=== PATIENT | female | born 1990 | race Hispanic/Latino ===

== ENCOUNTER → 2023-09-10 09:30 | Outpatient (REF) | payer OTHER, SELFPAY ==
[2023-09-10 10:12] LABS: Hematocrit 38.1 % (37.0-47.0); Hemoglobin 12.5 g/dL (12.0-16.0); Mean Corp Hgb Conc. 32.8 g/dL (33.0-37.0); Mean Corpuscular Hgb 27.9 pg (27.0-31.0); Mean Platelet Volume 9.5 fL (7.4-10.4); Platelet Count 278 10^3/uL (130-400); Red Blood Cell Count 4.48 10^6/uL (4.20-5.40); Red Cell Dist. Width 12.4 % (11.5-14.5); White Blood Cell Count 5.6 10^3/uL (4.8-10.8)
[2023-09-10 10:42] LABS: ALT (SGPT) 54 U/L (0-35); AST (SGOT) 29 U/L (14-36); Albumin 4.8 g/dl (3.5-5.0); Alkaline Phosphatase 87 U/L (38-126); Blood Urea Nitrogen 11 mg/dl (7-17); Calcium 9.5 mg/dl (8.4-10.2); Carbon Dioxide 24 mmol/L (22-30); Chloride 104 mmol/L (98-107); GGTP 40 U/L (12-43); Glucose 94 mg/dl (70-99); Potassium 4.3 mmol/L (3.5-5.1); Sodium 136 mmol/L (135-145); Total Bilirubin 0.5 mg/dl (0.2-1.3); Total Protein 7.9 g/dl (6.3-8.2); eGFR > 60.00
[2023-09-10 12:05] LABS: TSH Reflex To Free T4 3.32 uIU/ml (0.47-4.68)
[2023-09-11 10:31] LABS: H. pylori Breath Test Negative (Negative)
[2023-09-12 00:44] LABS: Endomysial IgA Antibody Titer <1:10 (<1:10)
[2023-09-13 04:10] LABS: IgA 124 mg/dl (70-400)
[2023-09-15 15:54] LABS: tTG IgA Antibody 5.6 EU/ml (0-19); tTG IgG Antibody 6.6 EU/ml (0-19)
== END ==
LOC: CLINIC 09:30
PROVIDERS: ATTENDING PHYSICIAN Nurse Practitioner Adult Health
DX: K29.50 Unspecified chronic gastritis without bleeding (principal); K76.0 Fatty (change of) liver, not elsewhere classified
CPT/HCPCS: 36415; 80053; 82784; 82977; 83013; 83516; 84443; 85027; 86231

== ENCOUNTER → 2023-11-10 10:55 | Outpatient (REF) | payer OTHER, SELFPAY ==
[2023-11-10 12:43] LABS: ALT (SGPT) 33 U/L (0-35); AST (SGOT) 24 U/L (14-36); Albumin 4.6 g/dl (3.5-5.0); Alkaline Phosphatase 87 U/L (38-126); Direct Bilirubin 0.1 mg/dl (0.0-0.4); Total Bilirubin 0.4 mg/dl (0.2-1.3); Total Protein 7.5 g/dl (6.3-8.2)
== END ==
LOC: REG 10:55
PROVIDERS: ATTENDING PHYSICIAN Nurse Practitioner Adult Health
DX: K76.0 Fatty (change of) liver, not elsewhere classified (principal)
CPT/HCPCS: 36415; 80076

== ENCOUNTER → 2024-05-04 06:37 | Day surgery (SDC) | payer OTHER, SELFPAY | LOC: GI 06:37 | PROVIDERS: ATTENDING PHYSICIAN Internal Medicine Gastroenterology | DX: K44.9 Diaphragmatic hernia without obstruction or gangrene (principal); K31.7 Polyp of stomach and duodenum; R10.13 Epigastric pain; R12 Heartburn | CPT/HCPCS: 43239; 88305; 88342 ==

== ENCOUNTER → 2024-06-30 12:12 | Outpatient (REF) | payer OTHER, SELFPAY | LOC: CPAP 12:12 | PROVIDERS: ATTENDING PHYSICIAN Nurse Practitioner Adult Health | DX: Z12.4 Encounter for screening for malignant neoplasm of cervix (principal) | CPT/HCPCS: 87624 ==

== ENCOUNTER 2024-09-08 09:38 | Emergency (ER) | payer SELFPAY ==
[2024-09-08 09:38] VITALS: BP 135/94
--- NOTE | 2024-09-08 10:00 | ED.GENMED ---
History of Present Illness
General
Chief Complaint: Ear Problem
Source: patient
Exam Limitations: none
Time Seen by Provider: 09/08/24 09:42
Nursing documentation reviewed up to this point in time: agreed with
History of Present Illness
History of Present Illness:
34-year-old female with no reported chronic medical issues presents to the ER for evaluation of congestion and earache. Patient reports symptoms have been ongoing for about 3 months. She reports nasal congestion and rhinorrhea. She reports aching
in both ears. She reports some sinus pressure/headache. She has tried multiple [id number] medications including decongestions, NSAIDs, Tylenol none of which seems to be helping. She was having trouble getting an appointment in the free
clinic and so she decided to come to the ER for treatment. She denies fevers or chills. Denies neck pain or stiffness. She denies any cough or respiratory issues, GI issues or any other complaints.
Past History
Past History
ED Past Medical History: None
ED Past Surgical History: None
Social History
Personal: Partner
Living: with family
Family History
Family History: Unable to obtain (non-contributory)
Review of Systems
Review of Systems
All Other Systems: ROS reviewed and negative except as documented in HPI and ROS
Constitutional: Denies fever or chills
EENT: Reports runny nose and other (Congestion, earache, sinus pressure)
Respiratory: Denies cough or trouble breathing
ABD/GI: Denies vomiting or diarrhea
Neurological: Reports headache
Phy Exam
Physical Exam
Physical Exam:
General: Awake, alert, oriented x3; no acute distress
Head: Normocephalic, atraumatic
Eyes: Conjunctiva normal, EOMI
Ears: No tenderness over the mastoid processes, no erythema in the mastoid processes; external ears normal, canals clear, TMs clear bilaterally
Nose: Patient does have some mild erythema of the nasal turbinates bilaterally
Throat: Airway intact, handling secretions
Neck: Trachea midline, supple without meningismus
Lungs: Clear to auscultation bilaterally, no wheezing, rales, rhonchi
Heart: Regular rate and rhythm, no murmurs, gallops, or rubs
Neuro: No gross deficits
Skin: no rash
Extremities: Warm and well-perfused
Scores
Heart Failure Risk
Heart Failure Risk Score: Not Applicable
Heart Score for Chest Pain Patients
STEMI patient?: Not applicable
Withdrawal Assessment of Alcohol
Withdrawal Assessment Completed?: Not applicable
Course
Vital Signs
Initial and Last Documented VS:
Initial Vital Signs
Temp Pulse Resp BP Pulse Ox
36.7 C 80 16 135/94 100
09/08/24 09:38 09/08/24 09:38 09/08/24 09:38 09/08/24 09:38 09/08/24 09:38
Last Documented Vital Signs
Temp Pulse Resp BP Pulse Ox
36.7 C 80 16 135/94 100
09/08/24 09:38 09/08/24 09:38 09/08/24 09:38 09/08/24 09:38 09/08/24 09:38
MDM/Problems Addressed
Differential Diagnosis Includes:
Sinusitis (allergic, viral, bacterial), TMJ, tension headache
MDM/Problems Addressed:
34-year-old female presents for evaluation of congestion, sinus pressure and ear aches for the past 3 months. Refractory to [id number] medications. Vitals and exam as above. Suspect likely sinusitis. Given prolonged duration and failure of
outpatient management with conservative measures we will trial course of antibiotics. Advised to once again trial fluticasone alongside antibiotic therapy. Follow-up in free clinic. Stable for discharge.
*Pulse Oximetry
Patient hypoxic: no
*Critical Care Note
Total Time (30-74mins, 75-104mins- exclusive of procedures): Not Applicable
Data Reviewed
Source: patient
Patient Management
Social determinants of health affecting care: Financial situation and Poor outpatient follow-up
ED Attending Note
-
Portions of this chart may have been created with voice recognition software.� Occasional wrong word or��sound alike� substitutions may have occurred due to the inherent limitations of voice recognition software.
Discharge Plan
Departure
Patient Disposition: Home (Routine Discharge)
Date of Disposition: 09/08/24
Time of Disposition: 10:00
Patient with high blood pressure during this ER visit?: No
Discharge Problem:
Earache, Sinusitis
Instructions: Sinusitis in adults
Prescriptions:
New
fluticasone propionate [Aller-Robbie] 50 mcg/actuation spray,suspension
1 spray intranasal DAILY 14 Days Qty: 16 0RF
cefdinir 300 mg capsule
300 mg PO BID Qty: 20 0RF
Referrals:
[facility] - Next open appointment
Activity Restrictions/Additional Instructions:
Thank you for visiting the Emergency Department at [facility].
1. Please schedule a follow up appointment as directed. Call first thing tomorrow morning to make an appointment.
2. If indicated, please take your medications as instructed and indicated on discharge paperwork.
3. If any of your symptoms do not improve, or persist, or become more severe within 6-12 hours, please return to the emergency department for further care.
4. Please return to the emergency department if you develop a headache, neck pain/stiffness, fever greater than 100.4F, chest pain, shortness of breath, persistent nausea, vomiting, slurred speech, difficulty walking, numbness/tingling, weakness,
signs of infection or any other symptoms that are worrisome to you.
Please call [phone] if you have any questions.
Interventions
Interventions:
*Risk Screen - Suicide Last Done: 09/08/24 09:38
*General Assessment Last Done: 09/08/24 09:38
*Neglect/Abuse Screening Last Done: 09/08/24 09:38
*ED COVID-19 Vaccine History Last Done: 09/08/24 09:38
Discharge Date and Time
Print Language: HONG KONGER
== END 2024-09-08 10:08 | disposition home or self-care (01) ==
LOC: EMR 09:38
PROVIDERS: EMERGENCY PHYSICIAN Emergency Medicine; FAMILY PHYSICIAN Nurse Practitioner Adult Health
DX: J32.9 Chronic sinusitis, unspecified (principal); H92.03 Otalgia, bilateral
CPT/HCPCS: 99283

== ENCOUNTER 2024-09-30 03:41 | Inpatient (IN) | payer OTHER, SELFPAY ==
[2024-09-29 20:03] VITALS: BP 124/93
[2024-09-29 20:16] LABS: Urine Albumin 3+ (Neg - Trace); Urine Bilirubin Negative (Negative); Urine Character Cloudy (Clear); Urine Color Yellow; Urine Glucose Negative (Negative); Urine Ketone Negative (Negative); Urine Leukocyte 3+ (Negative); Urine Nitrite Positive (Negative); Urine Occult Blood 4+ (Negative); Urine Urobilinogen 1+ (Neg - 1+)
[2024-09-29 20:26] LABS: Urine Squamous Cell None seen /LPF (Few)
[2024-09-29 20:27] LABS: Urine Red Blood Cell >100 /HPF (0-2)
[2024-09-29 21:10] VITALS: BMI 28.5
--- NOTE | 2024-09-29 23:15 | ED.GENMED ---
History of Present Illness
General
Chief Complaint: Urinary Symptoms
Time Seen by Provider: 09/29/24 23:14
History of Present Illness
History of Present Illness:
TIME OF INITIAL ENCOUNTER: 11:16 PM
HPI: Patient presents with dysuria for the last week or so. She will recently's been having gross hematuria. The pain is primarily on the right side of the abdomen. The pain is also the right flank region. She denies fevers. Language Line was
used to assist with translation
EXAM:
GENERAL: Appears uncomfortable
HEENT: Moist oral mucosa
CARDIOVASCULAR: No murmurs, normal heart rate, regular rhythm, No chest wall tenderness
PULMONARY: No respiratory distress, breath sounds are clear and equal
ABDOMEN: Soft with no peritoneal signs, mild right CVA tenderness, mild right normal tenderness
NEUROLOGIC: Excellent strength all extremities, no coordination deficits
PSYCHIATRIC: Appropriate mental status, normal insight and judgement
EXTREMITIES: Nontender, no edema, moves all extremities equally
SKIN: No rash, no lesions
NUMBER AND COMPLEXITY OF PROBLEMS ADDRESSED AT THE ENCOUNTER
� Chronic conditions affecting care: No significant past medical history
� Acute Exacerbation and/or Progression of Chronic Illness: This is an acute problem
� Differential Diagnosis includes: Hemorrhagic cystitis, UTI, ureteral stone, infected stone
AMOUNT AND/OR COMPLEXITY OF DATA TO BE REVIEWED AND ANALYZED
� I performed an independent evaluation of and my interpretation is:
EKG:
CT: CAT scan shows moderate to severe right-sided hydroureteronephrosis with wall thickening but no stones seen, the transition point is felt to be in the distal ureter there is also bladder wall thickening.
X-rays:
Laboratory Studies: Urinalysis positive for 4+ blood and positive nitrite, 3+ leukocyte esterase,
Other:
� Review of other/old records: I reviewed records, in 2022, the patient had a CT that showed mild right hydronephrosis with transition point at the UPJ
� Clinical information was obtained by an independent historian: None needed
� Prescriptions/Medications Considered but not given:
� Further testing considered but not performed:
RISK OF COMPLICATIONS AND/OR MORBIDITY OR MORTALITY OF PATIENT MANAGEMENT
� Social determinants of health affecting care: Bermudian-speaking primarily but does understand Thai
� Discussion with other providers: Dr. Colby for admission
� Escalation of care including admission/observation vs risk of discharge considered: The patient appears very uncomfortable. Will check CT and give Toradol as well as fluids.
ANY OTHER UPDATES:
1:15 AM: I reassessed patient. I am concerned about the overall ill appearance upon arrival with leukocytosis and mild increase in immature granulocytes. CT imaging is abnormal with concerns for both hydroureteronephrosis and pyelonephritis. She
never followed up with urology as an outpatient in the past. Will plan admission to the hospital for IV antibiotic
Past History
Past History
ED Past Medical History: None
ED Past Surgical History: None
Social History
Personal: Partner
Living: with family
Family History
Family History: Unable to obtain (non-contributory)
Phy Exam
Physical Exam
Physical Exam:
See HPI
Course
Orders/Labs/Results
Orders:
Orders
09/29/24 20:10
HCG, Urine Qualitative Screen Urgent
Date Specimen was Collected: 09/29/24
Time Specimen was Collected: 20:09
Comment: ADD ON
Urine Culture Reflexed from UA [Urinalysis Reflex To Culture] Urgent
Date Specimen was Collected: 09/29/24
Time Specimen was Collected: 20:09
Urine Microscopic Reflex Cult Urgent
Urine Culture Urgent
DANIEL Source: U
Specimen Description:
Date Specimen was Collected: 09/29/24
Time Specimen was Collected: 20:09
09/29/24 23:25
Add On- LAB Urgent
Tests Added?: urine hcg
0.9% Sodium Chloride 1000 ml [Nss] 1,000 ml IV BOLUS
Ketorolac [Toradol] 15 mg IV NOW STA
09/29/24 23:26
Complete Blood Count/With Diff Urgent
Comprehensive Metabolic Panel Urgent
Test Result ONCE
09/30/24 00:01
CT Abd/pel Without Iv Or Oral Urgent
Reason For Exam: R pain hematuria
09/30/24 00:56
CefTRIAXone [Rocephin] 1,000 mg IV NOW STA
Abnormal Lab Results
09/29/24 09/30/24
20:10 00:07
WBC 12.9 H 10^3/uL
(4.8-10.8)
RBC 3.96 L 10^6/uL
(4.20-5.40)
Hgb 11.7 L g/dL
(12.0-16.0)
Hct 33.2 L %
(37.0-47.0)
Abs Immat Gran (auto) 0.2 H 10^3/uL
(0-0.05)
Absolute Neuts (auto) 9.5 H 10^3/uL
(1.4-6.5)
Absolute Monos (auto) 0.7 H 10^3/uL
(0.1-0.6)
Immature Gran % 1.3 H %
(0-0.5)
Lymphocytes % 18.6 L %
(20.5-51.1)
Glucose 112 H mg/dl
(70-99)
Ur Occult Blood Reflex 4+ A
(Negative)
Urine Nitrite (Reflex) Positive A
(Negative)
Leukocyte Esterase Rfl 3+ A
(Negative)
Urine RBC >100 A /HPF
(0-2)
Urine Albumin (Reflex) 3+ A
(Neg - Trace)
09/30/24 00:07
09/30/24 00:07
Vital Signs
Initial and Last Documented VS:
Initial Vital Signs
Temp Pulse Resp BP Pulse Ox
36.8 C 84 18 124/93 98
09/29/24 20:03 09/29/24 20:03 09/29/24 20:03 09/29/24 20:03 09/29/24 20:03
Last Documented Vital Signs
Temp Pulse Resp BP Pulse Ox
36.8 C 84 18 124/93 98
09/29/24 20:03 09/29/24 20:03 09/29/24 20:03 09/29/24 20:03 09/29/24 20:03
*Critical Care Note
Total Time (30-74mins, 75-104mins- exclusive of procedures): Not Applicable
ED Attending Note
-
Portions of this chart may have been created with voice recognition software.� Occasional wrong word or��sound alike� substitutions may have occurred due to the inherent limitations of voice recognition software.
Discharge Plan
Departure
Patient Disposition: Admit
Date of Disposition: 09/30/24
Time of Disposition: 02:35
Presentation/result/management discussed w/ accepting MD/DO: Hospitalist
Discharge Problem:
Pyelonephritis
Prescriptions:
No Action
fluticasone propionate [Aller-Robbie] 50 mcg/actuation spray,suspension
1 spray intranasal DAILY 14 Days Qty: 16 0RF
cefdinir 300 mg capsule
300 mg PO BID Qty: 20 0RF
Referrals:
NONE,* [Family Provider] -
Interventions
Interventions:
*Risk Screen - Suicide Last Done: 09/29/24 21:10
*General Assessment Last Done: 09/29/24 20:03
*Neglect/Abuse Screening Last Done: 09/29/24 21:10
*ED COVID-19 Vaccine History Last Done: 09/29/24 21:10
ED-Female Genitourinary Assessment Last Done: 09/29/24 21:10
Discharge Date and Time
Print Language: GRENADIAN
[2024-09-29 23:42] LABS: HCG, Urine Qualitative Screen Negative
[2024-09-29] MEDS: TORADOL 15 MG IV (23:49)
[2024-09-29] MEDS: NSS 1000 IV (23:59)
[2024-09-30 00:29] LABS: ALT (SGPT) 23 U/L (0-35); AST (SGOT) 21 U/L (14-36); Alkaline Phosphatase 93 U/L (38-126); Blood Urea Nitrogen 14 mg/dl (7-17); Calcium 9.1 mg/dl (8.4-10.2); Carbon Dioxide 23 mmol/L (22-30); Chloride 107 mmol/L (98-107); Estimated Creatinine Clearance 114 ml/min; Glucose 112 mg/dl (70-99); Potassium 3.7 mmol/L (3.5-5.1); Sodium 140 mmol/L (135-145); Total Bilirubin 0.5 mg/dl (0.2-1.3); eGFR > 60.00
[2024-09-30 00:30] LABS: % Basophils 0.2 % (0-2); % Eosinophils 0.9 % (0-6); % Immature Granulocytes 1.3 % (0-0.5); % Lymphocytes 18.6 % (20.5-51.1); % Monocytes 5.4 % (1.7-9.3); % Neutrophils 73.6 % (42.2-75.2); Absolute Eosinophils 0.1 10^3/uL (0-0.7); Absolute Immature Granulocytes 0.2 10^3/uL (0-0.05); Absolute Lymphocytes 2.4 10^3/uL (1.2-3.4); Absolute Monocytes 0.7 10^3/uL (0.1-0.6); Absolute Neutrophils 9.5 10^3/uL (1.4-6.5); Hematocrit 33.2 % (37.0-47.0); Hemoglobin 11.7 g/dL (12.0-16.0); Mean Corp Hgb Conc. 35.2 g/dL (33.0-37.0); Mean Corpuscular Hgb 29.5 pg (27.0-31.0); Mean Corpuscular Volume 83.8 fL (81.0-99.0); Mean Platelet Volume 9.7 fL (7.4-10.4); Nucleated Red Blood Cells % 0 %; Platelet Count 254 10^3/uL (130-400); Red Blood Cell Count 3.96 10^6/uL (4.20-5.40); Red Cell Dist. Width 12.2 % (11.5-14.5); White Blood Cell Count 12.9 10^3/uL (4.8-10.8)
[2024-09-30] MEDS: ROCEPHIN 1000 MG IV (01:05)
[2024-09-30 02:30] VITALS: BP 116/90
--- NOTE | 2024-09-30 03:35 | HPS.HSE ---
Family Physician
-
Family Physician: * NONE
Chief Complaint
-
Flank Pain, Dysuria
History of Present Illness
Patient is a 34y F with no significant PMH who presents to ED complaining of R flank pain and dysuria for the past 8 days. Patient states that today she developed shaking chills and gross hematuria as well. She presented to the ED for further
evaluation and treatment. Patient reports similar episodes about 2 years ago at which time she was seen here as well. She denies any interim urinary issues / UTIs.
Medical History
Past Medical History
Past Medical History: Reports Other
Additional Past Medical History:
? Congenital R Hydronephrosis
Past Surgical History: Reports None
Social History
Tobacco: Non-smoker
Alcohol: None
Drug: None
Family History
Family History: Not pertinent
Allergies / Home Medications
Allergies reflects when Allergies were last updated in [facility].
Home Medications with original date entered in [facility]
Allergy/Medication List:
Allergies
Allergy/AdvReac Type Severity Reaction Status Date / Time
No Known Allergies Allergy Verified 09/29/24 20:03
Home Medications
No Meds [No Current Medications] 09/30/24
Review of Systems
-
History Source: Patient
A 12 point ROS was completed and negative except as noted: Yes
Constitutional: Reports Chills; Denies Fever
Respiratory: Denies Cough or Trouble Breathing
Cardiac: Denies Chest Pain or Palpitations
Abdomen/GI: Reports Abdominal Pain and Nausea; Denies Vomiting, Diarrhea or Constipated
: Reports Dysuria, Flank Pain and Bleeding
Musculoskeletal: Denies Joint Pain or Edema
Neurological: Denies Dizzy or Headache
Psych: Denies Depression or Anxiety
Physical Exam
Vital Signs
Vital Signs
Temp Pulse Resp BP Pulse Ox
98.2 F 79 16 116/90 98
09/29/24 20:03 09/30/24 02:30 09/30/24 02:30 09/30/24 02:30 09/30/24 02:30
Physical Exam
General: Other (34y F in mild distres due to flank pain.)
HEENT: Moist mucous membranes and PERRLA
Respiratory: Clear; No Wheezes, Rales or Rhonchi
Cardiac: S1/S2 and Regular Rhythm; No Murmur
GI: Soft, Non Distended, Normal Bowel Sounds and Other (Mildly tender - especially on the R abdomen.)
Genito-urinary: Costovertebral angle tend (Positive R CVAT.)
Musculoskeletal: No Clubbing, No Cyanosis and No Edema
Neuro: AO x 3
Laboratory Results
-
09/30/24 00:07
09/30/24 00:07
Laboratory Results
Total Bilirubin 0.5 mg/dl (0.2-1.3) 09/30/24 00:07
AST 21 U/L (14-36) 09/30/24 00:07
ALT 23 U/L (0-35) 09/30/24 00:07
Alkaline Phosphatase 93 U/L (38-126) 09/30/24 00:07
Impression/Plan
-
A/P: Patient is a 34y F with no significant PMH who presents to ED complaining of flank pain, dysuria and hematuria.
Right Hydroureteronephrosis
Right Pyelonephritis
- Admit for further evaluation and treatment.
- IV ceftriaxone pending culture data.
- Supportive care with IVFs, pain control, etc.
- Urology evaluation given acute on chronic hydro - ? congenital stenosis.
- Follow for clinical improvement.
DVT Prophylaxis: SCDs
Code Status: Full
[2024-09-30] MEDS: FLUSH (NSS) 1 FLUSH IV (03:59)
[2024-09-30] MEDS: DILAUDID 0.25 MG IV (04:00)
[2024-09-30] MEDS: LR 1000 IV ×3 (06:01→21:32)
[2024-09-30 06:23] LABS: Mean Corp Hgb Conc. 34.4 g/dL (33.0-37.0); Mean Corpuscular Hgb 28.4 pg (27.0-31.0); Mean Corpuscular Volume 82.7 fL (81.0-99.0); Mean Platelet Volume 9.4 fL (7.4-10.4); Platelet Count 238 10^3/uL (130-400); Red Blood Cell Count 3.87 10^6/uL (4.20-5.40); Red Cell Dist. Width 12.4 % (11.5-14.5); White Blood Cell Count 12.1 10^3/uL (4.8-10.8)
[2024-09-30 06:35] LABS: Blood Urea Nitrogen 8 mg/dl (7-17); Calcium 8.6 mg/dl (8.4-10.2); Carbon Dioxide 23 mmol/L (22-30); Chloride 108 mmol/L (98-107); Estimated Creatinine Clearance 114 ml/min; Glucose 113 mg/dl (70-99); Potassium 3.6 mmol/L (3.5-5.1); Sodium 141 mmol/L (135-145); eGFR > 60.00
--- NOTE | 2024-09-30 07:53 | W.PN.HOSP.TC ---
Addendum entered and electronically signed by Robert Parker MD 09/30/24 17:00:
Seen and examined by me independently in collaboration with the medical office coordinator.
Lab data and imaging data reviewed.
Addendum as below :
Admitted by Dr. Colby this morning for acute right ureteritis/UTI and right hydronephrosis with a suspicion of congenital right ureteropelvic junction obstruction. Continue with empirical antibiotics pending culture data. Appreciate urology input.
Original Note:
Today's Communication/Plan
-
abx, IV pain medication, antiemetics, IVF
Assessment / Plan
Assessment / Plan
34 year old with x8 days of R flank pain and dysuria, progressed to chills/hematuria x1d
CT Abd/pel Without Iv Or Oral:
Congenital UPJ obstruction, though with increased distention of the right renal pelvis and proximal right ureter compared to prior examination. Proximal right ureter associated with subtle periureteral soft tissue stranding. However, No renal or
ureteral calculus. Suspicious for infection/inflammation, such as ureteritis. The mid to distal right ureter appears normal in caliber. This suggests a transition between the proximal and distal ureter, though without opaque calculus. Possible
considerations include nonopaque calculus, inflammation, debris, or urothelial mass.
#Acute R Ureteritis
#R sided Hydronephrosis
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
- CT scan showing congenital UPJ obstruction, suspected ureteritis, transition point indicating nonopaque calculus vs. inflammation vs. debris vs. mass
- C/w ceftriaxone
- c/w IVF
- c/w pain medication, antiemetics
- Urology consulted -- no immediate intervention if she continues to improve sx kerns -- OP follow up
DVT PPx: SCDs
Code Status: Full Code
Anticipated Discharge: Today
Subjective/Interval History
-
Date of Service: September 30, 2024
Feeling better but still in some pain.
Objective Data
-
Labs:
Laboratory Results
09/30/24 09/30/24
00:07 06:09
WBC 12.9 H 12.1 H
Hgb 11.7 L 11.0 L
Hct 33.2 L 32.0 L
Plt Count 254 238
Sodium 140 141
Potassium 3.7 3.6
Chloride 107 108 H
Carbon Dioxide 23 23
BUN 14 8
Creatinine 0.6 0.4 L
Glucose 112 H 113 H
Calcium 9.1 8.6
Total Bilirubin 0.5
AST 21
ALT 23
Alkaline Phosphatase 93
Vital Signs:
Vital Signs
Temp Pulse Resp BP Pulse Ox
98.2 F 79 16 116/90 98
09/29/24 20:03 09/30/24 02:30 09/30/24 02:30 09/30/24 02:30 09/30/24 02:30
Review of Systems
-
History Source: Patient
Constitutional: Reports No Symptoms
Respiratory: Reports No Symptoms
Cardiac: Reports No Symptoms
Abdomen/GI: Reports Nausea; Denies Abdominal Pain, Vomiting or Diarrhea
Genitourinary: Reports Flank Pain
Physical Exam
-
General: Well Developed, Well Nourished, No Apparent Distress and Comfortable
HEENT: Normocephalic, Atraumatic, Moist Mucous Membranes and [place] Conjunctivae
Respiratory: Clear to Auscultation; Negative Wheezes, Rales or Rhonchi
Cardiac: Regular Rhythm and S1/S2; Negative Murmur or Rub
GI: Soft, Nontender and Nondistended
Musculoskeletal: No Clubbing, No Cyanosis and No Edema
Skin: Warm, Dry and IV Access / Catheter Site
Neuro: AO x 3
--- NOTE | 2024-09-30 09:58 | CONS.URO ---
Consultation
-
Date/Time Consultation Performed: 09/30/24 1020
Requesting Provider: ED
Performing Provider: Eduardo
Reason for Consultation: right pyelo
Medical History
History of Present Illness
ED admission note: 'Patient is a 34y F with no significant PMH who presents to ED complaining of R flank pain and dysuria for the past 8 days. Patient states that today she developed shaking chills and gross hematuria as well. She presented to
the ED for further evaluation and treatment. Patient reports similar episodes about 2 years ago at which time she was seen here as well. She denies any interim urinary issues / UTIs.'
Past Medical History
Past Medical History: None (earaches)
Past Surgical History: None
Social History
Tobacco: Non-smoker
Drug: None
Allergies/Home Medications
Allergies
Allergy/AdvReac Type Severity Reaction Status Date / Time
No Known Allergies Allergy Verified 09/29/24 20:03
Home Medications
�Medication �Instructions �Recorded �Confirmed �Type
No Meds [No Current Medications] 09/30/24 09/30/24 History
Physical Exam
Vital Signs
Vital Signs
Temp Pulse Resp BP Pulse Ox
98.2 F 79 16 116/90 98
09/29/24 20:03 09/30/24 02:30 09/30/24 02:30 09/30/24 02:30 09/30/24 02:30
Lab / Testing Results
Laboratory Results
09/30/24 06:09
09/30/24 06:09
Physical Exam
adult female on ED gurney
General: Well Nourished
Genito-urinary: Costovertebral Angle Tend (right)
Neuro: Awake
Psych: Calm
Assessment / Plan
-
Right Pyelonephritis
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
no urgent urosurgical intervention is indicated UNLESS she fails to clinically improve over next 48 hours as expected with antibiosis and hydration
after resolution of infection, further evaluation and consideration of Right UPJO would be advised
Data Reviewed
-
CT Scan: Image personally visualized and interpreted (CT scans from previous ED visits and this visit)
Lab Data: Labs Reviewed
Old Records: Reviewed
[2024-09-30 10:24] VITALS: BP 122/74
--- NOTE | 2024-09-30 12:18 | CM ---
CM met with pt and friend
Attempted language line for interpretation and poor connection
Friend provided hungarian interpretation
Pt resides with her spouse/Nelosn in a [address] that her friend owns
She is not employed and spouse works in a kitchen bringing in approx $550/weekly
Pt attends [facility] and is uninsured and noted she is not eligible for MA
Rx- Dilip/Ramon
Discharge Disposition- anticipate home no needs
[2024-09-30] MEDS: DILAUDID 0.5 MG IV (13:26)
[2024-09-30] MEDS: TORADOL 10 MG IV ×2 (13:27→19:28)
[2024-09-30] MEDS: TYLENOL 650 MG PO ×2 (13:27→21:32)
[2024-09-30] MEDS: ZOFRAN 4 MG IV (13:27)
[2024-09-30 13:43] VITALS: BP 119/87
[2024-09-30 14:40] VITALS: BP 104/65; BMI 28.5
--- NOTE | 2024-09-30 15:42 | PTCARENOTE ---
Pt was received from ED at 1440. Pt ambulated to the room with a supervision. Pt is complaining of 5/10 right flank pain that radiates to her right lower quadrant. Pt was medicated recently in ED and feels that the jefry is tolerable at the moment.
Language line utilized for communication.
[2024-09-30 23:39] VITALS: BP 104/65
[2024-10-01] MEDS: STERILE WATER FOR INJECTION 10 ML IV ×2 (00:12→23:52)
[2024-10-01] MEDS: ROCEPHIN 1000 MG IV ×2 (00:12→23:51)
[2024-10-01] MEDS: FLUSH (NSS) 1 FLUSH IV ×2 (00:13→23:52)
[2024-10-01] MEDS: LR 1000 IV (05:22)
[2024-10-01 07:22] VITALS: BP 98/60
[2024-10-01] MEDS: MOTRIN 400 MG PO (11:08)
--- NOTE | 2024-10-01 11:32 | W.PN.HOSP.TC ---
Addendum entered and electronically signed by Robert Parker MD 10/01/24 12:40:
Seen and examined by me independently in collaboration with the director of medical services.
Lab data and imaging data reviewed.
Addendum as below :
Interviewed with the help of language line today
Patient feels improved. No nausea vomiting. Improved abdominal pain/right flank pain. Improved dysuria. Was hoping for discharge.
Patient nontoxic. Slightly tachycardic. Blood pressure stable. Still with mild right costovertebral tenderness. Improving white count. Culture data pending. Continue with the current treatments.
Patient advised not stable enough for discharge today hopefully tomorrow.
Appreciate urology [id number] with urology as outpatient. No immediate interventions needed.
Original Note:
Today's Communication/Plan
-
If patient continues to tolerate diet and pain is manageable with PO tylenol/motrin, can likely D/c today w/ OP Urology follow up and PO Cipro
Assessment / Plan
Assessment / Plan
34 year old with x8 days of R flank pain and dysuria, progressed to chills/hematuria x1d
CT Abd/pel Without Iv Or Oral:
Congenital UPJ obstruction, though with increased distention of the right renal pelvis and proximal right ureter compared to prior examination. Proximal right ureter associated with subtle periureteral soft tissue stranding. However, No renal or
ureteral calculus. Suspicious for infection/inflammation, such as ureteritis. The mid to distal right ureter appears normal in caliber. This suggests a transition between the proximal and distal ureter, though without opaque calculus. Possible
considerations include nonopaque calculus, inflammation, debris, or urothelial mass.
#Acute R Ureteritis
#R sided Hydronephrosis
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
- CT scan showing congenital UPJ obstruction, suspected ureteritis, transition point indicating nonopaque calculus vs. inflammation vs. debris vs. mass
- C/w ceftriaxone day 2
- c/w IVF
- c/w pain medication, antiemetics
- Urology consulted -- no immediate intervention if she continues to improve sx kerns -- OP follow up
DVT PPx: SCDs
Code Status: Full Code
Anticipated Discharge: Within 24 hours
Subjective/Interval History
-
Date of Service: October 01, 2024
Flank pain is improving. No new fevers or chills. no new overnight events.
Objective Data
-
Vital Signs:
Vital Signs
Temp Pulse Resp BP Pulse Ox
99.5 F 80 18 98/60 98
10/01/24 07:22 10/01/24 07:22 10/01/24 07:22 10/01/24 07:22 10/01/24 07:22
Review of Systems
-
History Source: Patient
Constitutional: Reports No Symptoms
EENT: Reports No Symptoms Reported
Respiratory: Reports No Symptoms
Cardiac: Reports No Symptoms
Abdomen/GI: Reports No Symptoms
Genitourinary: Reports Flank Pain
Musculoskeletal: Reports No Symptoms
Physical Exam
-
General: Well Developed, Well Nourished, No Apparent Distress and Comfortable
HEENT: Normocephalic, Atraumatic, Moist Mucous Membranes, Anicteric, [place] Conjunctivae, Nose Appears Normal and Ears Appear Normal
Respiratory: Clear to Auscultation; Negative Wheezes, Rales or Rhonchi
Cardiac: Regular Rhythm and S1/S2; Negative Murmur or Rub
GI: Soft, Nondistended and Normal Bowel Sounds
Genito-urinary: Costovertebral Angle Tend
Skin: Warm, Dry and IV Access / Catheter Site
Neuro: AO x 3
--- NOTE | 2024-10-01 13:08 | W.PN.URO.CBU ---
Today's Communication / Plan
-
agree with discharge on oral antibiotics -- discharging medical team will ensure that final urine microbiology and prescribed antibiotic are in concert
Assessment / Plan
-
Right Pyelonephritis
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
Diagnosis
-
Date of Service: October 01, 2024
-
Patient Diagnosis:
Right Pyelonephritis
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
Subjective
-
feeling better, but not well
Objective
-
Vital Signs
Temp Pulse Resp BP Pulse Ox
99.5 F 80 18 98/60 98
10/01/24 07:22 10/01/24 07:22 10/01/24 07:22 10/01/24 07:22 10/01/24 07:22
Intake and Output
09/30/24 10/01/24 10/02/24
06:59 06:59 06:59
Other:
Number of unmeasured voidings 2
Number of approximated MODERATE 3
amounts of urine
Laboratory Results
09/30/24 06:09
09/30/24 06:09
urine cx: pending
Physical Exam
-
General - well developed, well nourished, no acute distress
Chest - clear bilaterally
Abdomen - soft, non-tender, positive bowel sounds, no CVAT, no incisional pain or distention
Genitalia - normal
Rectal - normal
Skin - warm & dry with no rash
Neuro - AOx3, no motor deficits
Extremities - no clubbing, no cyanosis, no edema
Incision - clean, dry
Dressing - clean, dry, intact
[2024-10-01 15:10] VITALS: BP 106/65
[2024-10-01 23:56] VITALS: BP 102/61
--- NOTE | 2024-10-02 07:08 | W.PN.HOSP.TC ---
Addendum entered and electronically signed by Sinan Blanchard MD 10/02/24 23:31:
Attending Addendum-
I saw and evaluated the patient. I reviewed the resident�s note and agree with findings and plan as documented in the resident�s note. Sub: Seen with family present. Patient speaks belarusian. Able to communicate effectively with patient in Nigerien.
Complains of mild right lower back pain. Denies urianry sxs. No fevers chills nv abd pain and grecia po. Full 12 point ROS reviewed and negative except as documented Exam: Vitals reviewed in chart GEN-NAd heart RRR lungs clear abd soft mild right CVA
tenderness LE no edema
Plan:
#Acute R Ureteritis
#R sided Hydronephrosis
#Congenital R Ureteropelvic Junction Obstruction
- C/w ceftriaxone day 3
- urine cx ecoli- sensi - P
- c/w IVF
- c/w pain medication, antiemetics
- Urology consulted -- no immediate intervention- OP follow up for correction of UPJO, PO abx x 14 days on DC
# Leukocytosis
- resolved
DVT PPx: SCDs
Code Status: Full Code
Dispo hopeful DC in am
Time spent coordinating care, review of plan of care with resident, personally reviewed records in EMR, med rec, consults, notes, labs, radiology, d/w nursing family � 51 mins
Original Note:
Today's Communication/Plan
-
Urine culture sensitivities pending.
Continue antibiotics.
Assessment / Plan
Assessment / Plan
34 year old with R flank pain and dysuria, progressed to chills/hematuria.
Assessment/plan
1. Complicated pyelonephritis
CT Abd/pel Without Iv Or Oral:
Congenital UPJ obstruction, though with increased distention of the right renal pelvis and proximal right ureter compared to prior examination. Proximal right ureter associated with subtle periureteral soft tissue stranding. However, No renal or
ureteral calculus. Suspicious for infection/inflammation, such as ureteritis. The mid to distal right ureter appears normal in caliber. This suggests a transition between the proximal and distal ureter, though without opaque calculus. Possible
considerations include nonopaque calculus, inflammation, debris, or urothelial mass.
White count�trended back to normal
Ceftriaxone day 3, continue
Urine cultures�E. coli, sensitivities pending.
Adequate pain control, antiemetics
Urology consulted -- discharge home on 14 days p.o. antibiotics
Outpatient follow-up for congenital right UPJ obstruction
DVT PPx: SCDs
Code Status: Full Code
Anticipated Discharge: Within 24 hours
Subjective/Interval History
-
Date of Service: October 02, 2024
Used [employer] to communicate with the patient. She reports mild discomfort in the abdomen. Nausea has resolved.
Objective Data
-
Labs:
Laboratory Results
10/02/24
07:00
WBC Pending
Hgb Pending
Hct Pending
Plt Count Pending
Sodium Pending
Potassium Pending
Chloride Pending
Carbon Dioxide Pending
BUN Pending
Creatinine Pending
Glucose Pending
Calcium Pending
Vital Signs:
Vital Signs
Temp Pulse Resp BP Pulse Ox
98.6 F 78 16 102/61 98
10/01/24 23:56 10/01/24 23:56 10/01/24 23:56 10/01/24 23:56 10/01/24 23:56
I&O
10/01/24 10/02/24 10/03/24
06:59 06:59 06:59
Intake Total 480 / 480
Balance 480 / 480
Review of Systems
-
All other systems: Reviewed and negative (As mentioned above)
Physical Exam
-
General: Well Developed, Well Nourished and No Apparent Distress
HEENT: Normocephalic and Atraumatic
Respiratory: Clear to Auscultation
Cardiac: Regular Rhythm and S1/S2
GI: Soft, Nontender, Nondistended and Normal Bowel Sounds
Genito-urinary: Costovertebral Angle Tend (On the right side)
Skin: Warm and Dry
Neuro: Awake, Alert, Oriented and AO x 3
[2024-10-02 07:35] VITALS: BP 109/71
[2024-10-02 07:59] LABS: Hematocrit 34.3 % (37.0-47.0); Hemoglobin 11.5 g/dL (12.0-16.0); Mean Corp Hgb Conc. 33.5 g/dL (33.0-37.0); Mean Corpuscular Hgb 28.1 pg (27.0-31.0); Mean Corpuscular Volume 83.9 fL (81.0-99.0); Mean Platelet Volume 9.5 fL (7.4-10.4); Platelet Count 266 10^3/uL (130-400); Red Blood Cell Count 4.09 10^6/uL (4.20-5.40); Red Cell Dist. Width 12.4 % (11.5-14.5); White Blood Cell Count 7.9 10^3/uL (4.8-10.8)
[2024-10-02 08:09] LABS: Blood Urea Nitrogen 10 mg/dl (7-17); Calcium 9.9 mg/dl (8.4-10.2); Carbon Dioxide 24 mmol/L (22-30); Chloride 106 mmol/L (98-107); Estimated Creatinine Clearance 114 ml/min; Glucose 100 mg/dl (70-99); Potassium 4.4 mmol/L (3.5-5.1); Sodium 141 mmol/L (135-145); eGFR > 60.00
--- NOTE | 2024-10-02 08:49 | W.PN.URO.CBU ---
Today's Communication / Plan
-
home on 14 days po abx
outpatient appt to consider correction of right UPJO
Assessment / Plan
-
Right Pyelonephritis
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
Diagnosis
-
Date of Service: October 02, 2024
-
Patient Diagnosis:
Right Pyelonephritis - E. coli
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
Subjective
-
slowly improving
Objective
-
Vital Signs
Temp Pulse Resp BP Pulse Ox
98.6 F 78 16 102/61 98
10/01/24 23:56 10/01/24 23:56 10/01/24 23:56 10/01/24 23:56 10/01/24 23:56
Intake and Output
10/01/24 10/02/24 10/03/24
06:59 06:59 06:59
Intake Total 480 / 480
Balance 480 / 480
Intake:
Oral fluids 480 / 480
Other:
Number of approximated MODERATE 3
amounts of urine
Laboratory Results
10/02/24 07:00
10/02/24 07:00
urine cx: still pending
Physical Exam
-
General - well developed, well nourished, no acute distress
Chest - clear bilaterally
Abdomen - soft, non-tender, positive bowel sounds, no CVAT, no incisional pain or distention
Genitalia - normal
Rectal - normal
Skin - warm & dry with no rash
Neuro - AOx3, no motor deficits
Extremities - no clubbing, no cyanosis, no edema
Incision - clean, dry
Dressing - clean, dry, intact
[2024-10-02 15:20] VITALS: BP 101/63
--- NOTE | 2024-10-02 16:24 | CM ---
Chart reviewed. Care ongoing.
Cont abx
Patient attends [facility] and is uninsured and noted she is not eligible for MA
Plan: Home, no needs
[2024-10-02] MEDS: MOTRIN 400 MG PO (17:26)
[2024-10-02] MEDS: ROCEPHIN 1000 MG IV (23:36)
[2024-10-02] MEDS: STERILE WATER FOR INJECTION 10 ML IV (23:40)
[2024-10-02] MEDS: FLUSH (NSS) 1 FLUSH IV (23:48)
[2024-10-02 23:58] VITALS: BP 93/53
--- NOTE | 2024-10-03 05:23 | W.DCSUMMARY ---
Addendum entered and electronically signed by Sinan Blanchard MD 10/04/24 00:27:
Read, reviewed, and agree. See same day progress note for additional details. good rx coupon provided for Levaquin x 4 additional days
Chase Blanchard MD
Original Note:
Documented by User: Abdullahi Martinez MD, Resident 10/03/24 20:54
Discharge Summary
Discharge Data
Date of Admission: 09/30/24
Date of Discharge: 10/03/24
-
Pending Results: No
Hospital Course
Discharging Physician : Dr. Sinan Blanchard, Dr. Abdullahi Martinez
Disposition : Home
Principal Discharge diagnosis : Complicated pyelonephritis, right ureteropelvic junction obstruction
Hospital Course : 34-year-old female with no significant past medical history presents to the ED complaining of right flank pain and dysuria for last 8 days, and at the day of presentation had shaking chills and gross hematuria. She had similar
episodes 2 years ago. Mildly elevated white count, stable renal function, urine analysis�evidence of infection. CT abdomen/pelvis showed right ureteropelvic junction obstruction and chronic dilatation of the collecting system, suspected
ureteritis. Patient was started on ceftriaxone and IVF. Urology was consulted�no urgent neurosurgical intervention, recommended outpatient follow-up for ureteropelvic junction obstruction. Adequate pain control and antiemetics. After urine
culture sensitivities were obtained patient has been transitioned from ceftriaxone to levofloxacin for 5 days. Patient has clinically improved, stable to be discharged home. Instructed to follow-up with urology and and [facility] clinic.
Important imaging findings :
CT abdomen/pelvis: congenital UPJ obstruction, though with increased distention of the right renal pelvis and proximal right ureter compared to prior examination. Proximal right ureter associated with subtle periureteral soft tissue stranding.
However, No renal or ureteral calculus. Suspicious for infection/inflammation, such as ureteritis. The mid to distal right ureter appears normal in caliber. This suggests a transition between the proximal and distal ureter, though without opaque
calculus. Possible considerations include nonopaque calculus, inflammation, debris, or urothelial mass.
Discharge Plan
-
Patient Disposition: Home (Routine Discharge)
Discharge Diagnosis/Procedures: Right Pyelonephritis
suspected Right Ureteropelvic Junction Obstruction
Condition: Good
Diet: As tolerated
Activity: As tolerated
Driving Restrictions: As prior to admission
Bathing Restrictions: None
Referrals:
Gal Clark MD [Active] - (call to make 30-minute office visit during week of October 09You have partial obstruction of kidney call [phone] make this appt to discuss treatment to prevent these infections)
NONE,* [Family Provider] - in less than 1 week
(Follow up with [facility] in 1 week
)
Additional Discharge Medication Instructions: Complete the entire course of antibiotics
Drink plenty of fluids
Follow-up with primary care/urology for repeat urine culture for eradication
Follow up at [facility] in a week.
Prescriptions:
New
levofloxacin 750 mg Tablet
750 mg PO DAILY 4 Days Qty: 4 0RF
Discharge Orders:
Discharge Patient (As Directed); Ordered 10/03/24
Ordered By: Abdullahi Martinez
Discharge Date and Time
Discharge Date/Time: 10/03/24 15:21
Print Language: CHINESE

Documented by User: Sinan Blanchard MD 10/04/24 00:22
Discharge Summary
Discharge Data
Date of Admission: 09/30/24
Date of Discharge: 10/04/24
Discharge Plan
-
Patient Disposition: Home (Routine Discharge)
Discharge Diagnosis/Procedures: Right Pyelonephritis
suspected Right Ureteropelvic Junction Obstruction
Condition: Good
Diet: As tolerated
Activity: As tolerated
Driving Restrictions: As prior to admission
Bathing Restrictions: None
Referrals:
Gal Clark MD [Active] - (call to make 30-minute office visit during week of October 09You have partial obstruction of kidney call [phone] make this appt to discuss treatment to prevent these infections)
NONE,* [Family Provider] - in less than 1 week
(Follow up with [facility] in 1 week
)
Additional Discharge Medication Instructions: Complete the entire course of antibiotics
Drink plenty of fluids
Follow-up with primary care/urology for repeat urine culture for eradication
Follow up at [facility] in a week.
Prescriptions:
New
levofloxacin 750 mg Tablet
750 mg PO DAILY 4 Days Qty: 4 0RF
Discharge Orders:
Discharge Patient (As Directed); Ordered 10/03/24
Ordered By: Abdullahi Martinez
Discharge Date and Time
Discharge Date/Time: 10/03/24 15:21
Print Language: CHINESE
[2024-10-03 07:19] VITALS: BP 93/60
--- NOTE | 2024-10-03 07:36 | W.PN.HOSP.TC ---
Addendum entered and electronically signed by Sinan Blanchard MD 10/04/24 00:25:
Attending Addendum-
I saw and evaluated the patient. I reviewed the resident�s note and agree with findings and plan as documented in the resident�s note. Sub: Seen with family present. Patient speaks kyrgyz. Able to communicate effectively with patient in Slovenian. no
further lower back pain. Denies urinary sxs. No fevers chills nv abd pain and grecia po. wants to go home. Full 12 point ROS reviewed and negative except as documented Exam: Vitals reviewed in chart GEN-NAd heart RRR lungs clear abd soft no right CVA
tenderness LE no edema
Plan:
#Acute R Ureteritis
#R sided Hydronephrosis
#Congenital R Ureteropelvic Junction Obstruction
- ceftriaxone d
- urine cx ecoli- sensi -MDR including rocephin start levaquin kennedy
- c/w pain medication, antiemetics
- Urology consulted -- no immediate intervention- OP follow up for correction of UPJO, PO abx on DC
- abx priced out due to lack of insurance
- f/u clnic
# Leukocytosis
- resolved
DVT PPx: SCDs
Code Status: Full Code
Dispo-DC home
Time spent coordinating care, DC planning, review of DC plan of care with resident, transition of care, review of records, med rec/scripts sent electronically, consults, notes, d/w consultants, nursing, family, and CM� 32 mins
Original Note:
Today's Communication/Plan
-
Discharged on oral antibiotics.
Assessment / Plan
Assessment / Plan
34 year old with R flank pain and dysuria, progressed to chills/hematuria.
Assessment/plan
1. Complicated pyelonephritis
CT Abd/pel Without Iv Or Oral:
Congenital UPJ obstruction, though with increased distention of the right renal pelvis and proximal right ureter compared to prior examination. Proximal right ureter associated with subtle periureteral soft tissue stranding. However, No renal or
ureteral calculus. Suspicious for infection/inflammation, such as ureteritis. The mid to distal right ureter appears normal in caliber. This suggests a transition between the proximal and distal ureter, though without opaque calculus. Possible
considerations include nonopaque calculus, inflammation, debris, or urothelial mass.
White count�trended back to normal
Ceftriaxone day 3, continue
Urine cultures�E. coli, sensitivities -MDR E. coli, sensitive to ciprofloxacin/gentamicin/nitrofurantoin.
Adequate pain control, antiemetics
Urology consulted
Discharge home on Levofloxacin�750 mg, once daily for 4 more days, got a dose of levofloxacin today.
Outpatient follow-up for congenital right UPJ obstruction
DVT PPx: SCDs
Code Status: Full Code
Anticipated Discharge: Today
Subjective/Interval History
-
Date of Service: October 03, 2024
Used [employer]cher language line to communicate with the patient. She reports no abdominal pain, nausea has resolved.
Objective Data
-
Labs:
Laboratory Results
10/03/24 10/03/24
07:22 07:23
WBC Pending
Hgb Pending
Hct Pending
Plt Count Pending
Sodium Pending
Potassium Pending
Chloride Pending
Carbon Dioxide Pending
BUN Pending
Creatinine Pending
Glucose Pending
Calcium Pending
Vital Signs:
Vital Signs
Temp Pulse Resp BP Pulse Ox
98.2 F 81 16 93/53 98
10/02/24 23:58 10/02/24 23:58 10/02/24 23:58 10/02/24 23:58 10/02/24 23:58
I&O
10/02/24 10/03/24 10/04/24
06:59 06:59 06:59
Intake Total 480 / 480 480 / 480
Balance 480 / 480 480 / 480
Review of Systems
-
All other systems: Reviewed and negative (As mentioned above)
Physical Exam
-
General: Well Developed and Well Nourished
HEENT: Normocephalic and Atraumatic
Respiratory: Clear to Auscultation
Cardiac: Regular Rhythm and S1/S2
GI: Soft, Nontender, Nondistended and Normal Bowel Sounds
Genito-urinary: No Costovertebral Tender
Skin: Warm and Dry
Neuro: Awake, Alert and Oriented
[2024-10-03 07:53] LABS: Hematocrit 35.5 % (37.0-47.0); Hemoglobin 11.8 g/dL (12.0-16.0); Mean Corp Hgb Conc. 33.2 g/dL (33.0-37.0); Mean Corpuscular Hgb 28.2 pg (27.0-31.0); Mean Corpuscular Volume 84.7 fL (81.0-99.0); Mean Platelet Volume 9.5 fL (7.4-10.4); Platelet Count 282 10^3/uL (130-400); Red Blood Cell Count 4.19 10^6/uL (4.20-5.40); Red Cell Dist. Width 12.4 % (11.5-14.5); White Blood Cell Count 7.3 10^3/uL (4.8-10.8)
[2024-10-03 08:14] LABS: Blood Urea Nitrogen 15 mg/dl (7-17); Calcium 9.8 mg/dl (8.4-10.2); Carbon Dioxide 25 mmol/L (22-30); Chloride 105 mmol/L (98-107); Estimated Creatinine Clearance 114 ml/min; Glucose 96 mg/dl (70-99); Potassium 4.6 mmol/L (3.5-5.1); Sodium 142 mmol/L (135-145); eGFR > 60.00
[2024-10-03] MEDS: LEVAQUIN 750 MG PO (10:14)
--- NOTE | 2024-10-03 10:18 | W.PN.URO.CBU ---
Today's Communication / Plan
-
d/c when ok by hospitalist needs post hospital visit
Assessment / Plan
-
Right Pyelonephritis
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
Diagnosis
-
Date of Service: October 03, 2024
-
Patient Diagnosis:
Post Op Day:
Patient Diagnosis:
Right Pyelonephritis - E. coli
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
Subjective
-
feels better
Objective
-
Vital Signs
Temp Pulse Resp BP Pulse Ox
97.8 F 82 18 93/60 99
10/03/24 07:19 10/03/24 07:19 10/03/24 07:19 10/03/24 07:19 10/03/24 07:19
Intake and Output
10/02/24 10/03/24 10/04/24
06:59 06:59 06:59
Intake Total 480 / 480 480 / 480
Balance 480 / 480 480 / 480
Intake:
Oral fluids 480 / 480 480 / 480
Other:
Number of approximated MODERATE 3 4
amounts of urine
Laboratory Results
10/03/24 07:23
10/03/24 07:22
Review of Systems
-
: No Symptoms
Physical Exam
-
General - well developed, well nourished, no acute distress
Chest - clear bilaterally
Abdomen - soft, non-tender, positive bowel sounds, no CVAT, no incisional pain or distention
Genitalia - normal
Rectal - normal
Skin - warm & dry with no rash
Neuro - AOx3, no motor deficits
Extremities - no clubbing, no cyanosis, no edema
Incision - clean, dry
Dressing - clean, dry, intact
Care Review
Data Reviewed
Discussed with: Hospitalist and Nursing
CT Scan: Image Pers Reviewed
--- NOTE | 2024-10-03 14:03 | CM ---
Discussed w/ physician resident, patient will d/c today on po abx. Patient is without medical and rx insurance.
Discussed w/ patient d/c today and provided her w/ GoodRx coupon and instructed to present coupon when she picks up her medication. CM identified [facility] in [place] which was the most affordable w/ the coupon.
Patient will need to follow up at the [facility] clinic in a week
Plan: Home, no needs
[2024-10-03 15:19] VITALS: BP 112/80
== END 2024-10-03 15:21 | disposition home or self-care (01) | DRG 699 ==
LOC: 4 EAST ACU 03:41
PROVIDERS: Emergency Medicine; Student in an Organized Health Care Education/Training Program; ADMITTING PHYSICIAN Hospitalist; ATTENDING PHYSICIAN Family Medicine; CONSULT PHYSICIAN Specialist; EMERGENCY PHYSICIAN Internal Medicine
DX: N28.89 Other specified disorders of kidney and ureter (principal); Q62.0 Congenital hydronephrosis; Q62.39 Other obstructive defects of renal pelvis and ureter; N12 Tubulo-interstitial nephritis, not specified as acute or chronic; R31.0 Gross hematuria; B96.20 Unspecified Escherichia coli [E. coli] as the cause of diseases classified elsewhere
CPT/HCPCS: 74176; 80048; 80053; 81003; 81015; 81025; 85025; 85027; 87071; 87086; 87186; 96361; 96374; 96375; 99284

== ENCOUNTER → 2024-10-25 11:22 | Outpatient (REF) | payer OTHER, SELFPAY ==
[2024-10-25 16:57] LABS: Urine Albumin Negative (Neg - Trace); Urine Bilirubin Negative (Negative); Urine Character Clear (Clear); Urine Color Yellow; Urine Glucose Negative (Negative); Urine Ketone Negative (Negative); Urine Leukocyte Negative (Negative); Urine Nitrite Negative (Negative); Urine Occult Blood 2+ (Negative); Urine Specific Gravity 1.015 (<1.030); Urine Urobilinogen Negative (Neg - 1+)
[2024-10-25 17:19] LABS: Urine Bacteria Few (Negative); Urine Red Blood Cell 0-2 /HPF (0-2)
== END ==
LOC: CLINIC 11:22
PROVIDERS: ATTENDING PHYSICIAN Nurse Practitioner Adult Health
DX: Q62.39 Other obstructive defects of renal pelvis and ureter (principal); N12 Tubulo-interstitial nephritis, not specified as acute or chronic
CPT/HCPCS: 81003; 81015; 87086